=== PATIENT | female | born 1985 | race Caucasian/White ===

== ENCOUNTER → 2020-11-17 11:05 | Outpatient (CLI) | payer OTHER, MEDICAID, SELFPAY ==
[2020-11-17 12:19] LABS: Add Manual Diff / Slide Review NO; Basophils Absolute Auto 0 /uL (0-100); Basophils Percent Auto 0.6 % (0-2); Eosinophils Absolute Auto 100 /uL (0-450); Eosinophils Percent Auto 1.2 % (2-4); Hematocrit 37.7 % (36-46); Hemoglobin 12.3 g/dL (12.0-16.0); Lymphocytes Absolute Auto 1600 /uL (1100-4500); Lymphocytes Percent Auto 24.5 % (25-40); Mean Corpuscular HGB Conc 32.7 % (30-36); Mean Corpuscular Volume 85.7 fL (80-100); Monocytes Absolute Auto 600 /uL (0-900); Monocytes Percent Auto 8.5 % (3-14); Neutrophils Absolute Auto 4300 /uL (1500-7000); Neutrophils Percent Auto 65.2 % (50-75); Platelet Count 331 X10^3/uL (150-400); Red Cell Distribution Width 13.9 % (11.6-14.8); White Blood Cell Count 6.6 X10^3/uL (4.5-11.0)
[2020-11-17 12:28] LABS: Alanine Aminotransferase 13 IU/L (<35); Albumin 4.8 g/dL (3.5-5.0); Albumin Globulin Ratio 1.7 (1.0-2.8); Alkaline Phosphatase 52 U/L (38-126); Aspartate Aminotransferase 22 IU/L (14-36); BUN Creatinine Ratio 17.5 (6-22); Bilirubin Total 0.4 mg/dL (0.2-1.3); Blood Urea Nitrogen 10 mg/dL (7-17); Calcium 9.7 mg/dL (8.4-10.2); Carbon Dioxide 26 mmol/L (22-32); Chloride 106 mmol/L (98-107); Cholesterol 150 mg/dL (140-199); Estimated Glomerular Filt Rate > 60.0 mL/min (>60); Globulin 2.8 g/dL (1.7-4.1); Glucose 99 mg/dL (70-100); HDL Cholesterol 64 mg/dL (40-60); HEMOLYSIS < 15 (0-50); LDL Cholesterol Calculated 75 mg/dL (<100); Potassium 4.2 mmol/L (3.4-5.1); Sodium 139 mmol/L (137-145); Total Protein 7.6 g/dL (6.3-8.2); Triglycerides 55 mg/dL (35-150)
[2020-11-17 12:55] LABS: Free T4, Direct Thyroxine 0.83 ng/dL (0.78-2.19)
== END ==
PROVIDERS: PCP Registered Nurse; Referring Provider Registered Nurse; Visit Provider Registered Nurse
DX: R53.83 Other fatigue (principal); I10 Essential (primary) hypertension; Z86.39 Personal history of other endocrine, nutritional and metabolic disease; Z83.42 Family history of familial hypercholesterolemia
CPT/HCPCS: 36415; 80053; 80061; 84439; 84443; 85025

== ENCOUNTER → 2021-03-15 12:10 | Outpatient (CLI) | payer OTHER, MEDICAID, SELFPAY ==
[2021-03-15 17:40] LABS: Urine N gonorrhoeae NOT DETECTED
[2021-03-15 17:42] LABS: Urine Chlamydia NOT DETECTED
[2021-03-15 19:04] LABS: HIV 1 & 2 Ab/Ag 4th Gen Combo NEGATIVE (NEGATIVE); Hep C Virus Ab w/Reflex Quant NEGATIVE s/c (NEGATIVE)
[2021-03-16 08:36] LABS: Hepatitis B Surf Ab Qualitativ Non Reactive (.)
[2021-03-16 11:09] LABS: RPR Screen Non Reactive (Non Reactive)
== END ==
PROVIDERS: PCP Registered Nurse; Referring Provider Specialist; Visit Provider Specialist
DX: Z20.2 Contact with and (suspected) exposure to infections with a predominantly sexual mode of transmission (principal); Z11.3 Encounter for screening for infections with a predominantly sexual mode of transmission
CPT/HCPCS: 36415; 86592; 86706; 86803; 87389; 87491; 87591

== ENCOUNTER → 2021-05-03 13:08 | Outpatient (CLI) | payer OTHER, MEDICAID, SELFPAY ==
[2021-05-03 15:29] LABS: Urine N gonorrhoeae NOT DETECTED
[2021-05-03 15:50] LABS: Urine Chlamydia NOT DETECTED
[2021-05-04 04:36] LABS: HSV 2 IGG AB < 0.91 index (0.00-0.90); HSV1IGG > 62.20 index (0.00-0.90); RPR Screen Non Reactive (Non Reactive)
[2021-05-04 17:26] LABS: Hepatitis B Surface Antigen NEGATIVE s/c (NEGATIVE)
[2021-05-04 17:41] LABS: HIV 1 & 2 Ab/Ag 4th Gen Combo NEGATIVE (NEGATIVE); Hep C Virus Ab w/Reflex Quant NEGATIVE s/c (NEGATIVE)
[2021-05-05 22:19] LABS: HSV I/II IgM <0.91 Ratio (0.00-0.90)
== END ==
PROVIDERS: PCP Registered Nurse; Referring Provider Specialist; Visit Provider Specialist
DX: Z11.3 Encounter for screening for infections with a predominantly sexual mode of transmission (principal); Z20.2 Contact with and (suspected) exposure to infections with a predominantly sexual mode of transmission
CPT/HCPCS: 36415; 86592; 86694; 86695; 86696; 86803; 87340; 87389; 87491; 87591

== ENCOUNTER → 2021-09-21 14:09 | Outpatient (CLI) | payer OTHER, MEDICAID, SELFPAY ==
[2021-09-21 17:40] LABS: Hepatitis B Surface Antigen NEGATIVE s/c (NEGATIVE)
[2021-09-21 17:56] LABS: HIV 1 & 2 Ab/Ag 4th Gen Combo NEGATIVE (NEGATIVE); Hep C Virus Ab w/Reflex Quant NEGATIVE s/c (NEGATIVE)
[2021-09-21 18:54] LABS: Urine N gonorrhoeae NOT DETECTED
[2021-09-21 19:01] LABS: Urine Chlamydia NOT DETECTED
[2021-09-22 03:53] LABS: RPR Screen Non Reactive (Non Reactive)
[2021-09-22 08:10] LABS: HSV 2 IGG AB < 0.91 index (0.00-0.90)
[2021-09-22 18:42] LABS: HSV I/II IgM <0.91 Ratio (0.00-0.90)
== END ==
PROVIDERS: PCP Family Medicine; Referring Provider Family Medicine; Visit Provider Family Medicine
DX: B00.1 Herpesviral vesicular dermatitis; R53.83 Other fatigue; Z01.89 Encounter for other specified special examinations
CPT/HCPCS: 36415; 86592; 86694; 86695; 86696; 86803; 87340; 87389; 87491; 87591

== ENCOUNTER → 2021-10-06 08:32 | Outpatient (CLI) | payer OTHER, MEDICAID, SELFPAY ==
--- NOTE | 2021-10-06 08:33 | DI.RAD.S_ITS ---
PROCEDURE: XR HAND RT MIN 3V INDICATIONS: bilateral hand pain TECHNIQUE: 3 views of the right hand(s) acquired. COMPARISON: None. FINDINGS: Bones: No fractures or dislocations. Carpal bones are normally aligned. No suspicious bony lesions. Soft tissues: No suspicious soft tissue calcifications. IMPRESSION: No radiographic abnormalities. Dictated by: Tamara Green M.D. on 10/06/2021 at 10:38 Approved by: Tamara Green M.D. on 10/06/2021 at 10:38
--- NOTE | 2021-10-06 08:33 | DI.RAD.S_ITS ---
PROCEDURE: XR HAND LT MIN 3V INDICATIONS: bilateral hand pain TECHNIQUE: 3 views of the left hand(s) acquired. COMPARISON: None. FINDINGS: Bones: No fractures or dislocations. Carpal bones are normally aligned. No suspicious bony lesions. Soft tissues: No suspicious soft tissue calcifications. IMPRESSION: No radiographic abnormalities. Dictated by: Tamara Green M.D. on 10/06/2021 at 10:38 Approved by: Tamara Green M.D. on 10/06/2021 at 10:39
== END ==
PROVIDERS: PCP Family Medicine; Referring Provider Family Medicine; Visit Provider Family Medicine
DX: G56.03 Carpal tunnel syndrome, bilateral upper limbs (principal); M79.641 Pain in right hand; M79.642 Pain in left hand
CPT/HCPCS: 73130

== ENCOUNTER → 2021-10-19 09:22 | Outpatient (CLI) | payer OTHER, MEDICAID, SELFPAY ==
[2021-10-19 12:12] LABS: TSH w/ Reflex to FT4 2.42 uIU/mL (0.47-4.68)
== END ==
PROVIDERS: PCP Family Medicine; Referring Provider Family Medicine; Visit Provider Family Medicine
DX: Z86.39 Personal history of other endocrine, nutritional and metabolic disease (principal)
CPT/HCPCS: 36415; 84443

== ENCOUNTER 2021-10-26 10:23 | Day surgery (SDC) | payer OTHER, MEDICAID, SELFPAY ==
[2021-10-20 14:14] VITALS: BMI 23.6
--- NOTE | 2021-10-26 | PATH_ITS ---
[facility] Accession Number: [id number] . 01 Material submitted: . fallopian tube - BILATERAL FALLOPIAN TUBES . 01 Diagnosis: Bilateral Fallopian Tubes, Bilateral Salingectomies: Fallopian tube #1, complete cross-sections; negative for atypia or malignancy; adjacent benign 4 mm paratubal cyst. Fallopian tube #2, complete cross-sections; negative for atypia or malignancy. [facility] 10/30/2021 1602 Local . 01 Electronically signed: . Rosita Mercer MD, Pathologist NPI- [id number] . 01 Gross description: . Received in formalin in a specimen container labeled with the patient's name, medical record number, and bilateral fallopian tubes, are two unoriented fallopian tubes with attached fimbriae. The fallopian tube #1 measures 5.5 cm in length and 0.7 cm in maximum diameter. The attached fimbria measures 1.0 x 1.0 x 0.5 cm. The serosal surface is pink, smooth and glistening. There is a 0.4 cm in diameter paratubal cyst identified within the ampullary aspect of the fallopian tube. The cut surfaces are cylindrical and patent 0.2 cm in diameter unremarkable lumen. Fallopian tube #2 measures 5 cm in length and 0.7 cm in maximum diameter. The attached fimbria measures 1.3 x 0.7 x 0.7 cm. The serosal surface is pink, smooth, glistening and cut surface are patent, cylindrical, with 0.2 cm patient lumen. . The fundraising sale representative sections are submitted as follows: . A1: Fallopian tube #1 and fimbria, as well as paratubal cyst. A2: Fimbria and fallopian tube fundraising sale representative of fallopian tube #2. ([id number]) /MRV 10/30/2021 0940 Local . 01 Pathologist provided ICD-10: Z30.2, Z30.432 . 01 CPT . 724936 Specimen Comment: A courtesy copy of this report has been sent to [phone] Performed at: 01 [facility] [address] [place] [address], [place], [place] [id number] MD Rodrick Aaron MD Phone: [phone]
[2021-10-26 10:48] VITALS: BP 116/72; PULSE 77; RESP 20; TEMP 36.6; O2SAT 97; BMI 23.6
[2021-10-26 11:03] LABS: COVID19 -Nasal RAPID Negative (Negative)
[2021-10-26] MEDS: LACTATED RINGERS 1,000 ML 100 ML IV (11:04)
--- NOTE | 2021-10-26 13:35 | PM.GYNOP.1 ---
Procedure & Clinicians Procedure: Procedures Operation Date: 10/26/21 11:45 <No data on this case meets the specified criteria>
--- NOTE | 2021-10-26 13:35 | PM.HP.1 ---
History of Present Illness History of Present Illness Date Patient Seen: 10/26/21 Time Patient Seen: 13:35 Chief complaint: SDC Narrative: Patient is a 36-year-old 3 para 2 who desires permanent sterilization. Patient also has a ParaGard IUD in place that needs to be removed. Patient History Medical History (Updated 09/21/21 @ 14:39 by Kimmie Astorga PA-C) Anxiety with depression Carpal tunnel syndrome on both sides Fatigue Heavy menstrual period Herpes (~2019) Ovarian cyst Surgical History (Updated 03/14/21 @ 20:10 by Gayle Adams) Anesthesia History of appendectomy History of thyroid surgery Family & Social History Family History (Updated 03/14/21 @ 20:11 by Gayle Adams) Father Prostate cancer Brother Mental health problem Social History: household members significant other,family Tobacco & Substance use: Smoking Status Current every day smoker alcohol intake current alcohol intake frequency 0-2 drinks per day Substance Use Type marijuana Meds Home Medications and Allergies Home Medications Medication Instructions Recorded Confirmed Type Paraguard 1 unit intrauterine CONT 11/17/20 10/06/21 History hydrocortisone acetate 25 mg 25 mg AR BEDTIME hemorrhoids #1 ea 08/17/21 10/20/21 Rx rectal suppository (Anusol-HC) gabapentin 600 mg tablet 600 mg PO TID PRN nerve pain #90 10/06/21 10/26/21 Rx tabs dextroamphetamine-amphetamine 10 See Rx Instructions PO ONCE PRN 10/25/21 10/26/21 Rx mg tablet adhd #60 tabs sertraline 100 mg tablet See Rx Instructions .Route 10/25/21 10/26/21 Rx .COMPLEX #90 tabs Allergies Allergy/AdvReac Type Severity Reaction Status Date / Time No Known Drug Allergies Allergy Verified 10/06/21 08:11 Exam Vital Signs (past 8 hours): - 10/26/21 10:48 Temperature 97.9 F Pulse Rate 77 Respiratory Rate 20 Blood Pressure 116/72 Pulse Oximetry 97 Oxygen Delivery Method Room Air Oxygen Delivery Method Room Air Narrative Exam Narrative: HEENT: No thyromegaly, no anterior cervical or supraclavicular lymphadenopathy. Lungs:Clear to auscultation bilaterally, no wheezes. Cardiovascular: Regular rate and rhythm, no murmurs, rubs, or gallops. Abdomen: Well-healed scars. No hepatosplenomegaly. No masses palpable. External genitalia: Normal Vagina: Normal Cervix: Normal IUD strings visible Bimanual exam: [7 Week size anteverted uterus. Mobile.] Rectal: No masses. Objective Labs Labs: Laboratory Results - last 24 hr 10/26/21 10:39 SARS-CoV-2 (PCR) Negative Assessment & Plan Assessment & Plan narrative: Assessment: 36-year-old 3 para 2 who desires permanent sterilization ParaGard IUD in place Plan: Laparoscopic bilateral salpingectomy and removal of ParaGard IUD The risks, benefits, and alternatives to the procedure were explained to the patient. The risks including bleeding, infection, injury to the bowel, bladder, or ureters. She understands these risks and agrees to proceed. A full par Q was held and consent form was signed. COVID-19 COVID-19 status: Negative Result date/Date tested (Pos, Neg/Pending): 10/26/21 Time Spent With Patient Time with patient: less than 30 minutes Critical Care time: I spent a total of [] minutes of critical care time on this patient's care today; this time is exclusive of procedural time.
--- NOTE | 2021-10-26 13:38 | PM.PREOP ---
Pre-operative Note COVID-19 COVID-19 status: Negative Result date/Date tested (Pos, Neg/Pending): 10/26/21 Criteria for continued procedure: Non-surgical alternatives not available or appropriate per current SOC Interval Note History & Physical reviewed/Exam performed by Physician: Yes Changes to H&P: No H&P completed within 30 days and has changed as indicated here:: 10/26/21
[2021-10-26] MEDS: ACETAMINOPHEN IV 1,000 MG/100 ML VIAL 400 MG IV (14:20)
--- NOTE | 2021-10-26 14:21 | SUR.OPER ---
Lithotomy on padded OR bed, head on pillow, arms secured and tucked padded with gel. Legs secured in padded yellow fins stirrups. directed and approved by surgeon.
[2021-10-26] MEDS: BUPIVACAINE 0.5% W/ EPI (PF) 30 ML VIAL INJ (14:35)
[2021-10-26 15:03] VITALS: BP 105/63; PULSE 74; RESP 16; TEMP 36.6; O2SAT 97
[2021-10-26 15:08] VITALS: BP 114/69; PULSE 86; RESP 16; O2SAT 96
[2021-10-26] MEDS: OXYCODONE IR 5 MG TABLET PO (15:14)
[2021-10-26 15:17] VITALS: BP 116/77; PULSE 75; RESP 16; O2SAT 96
[2021-10-26 15:31] VITALS: BP 111/63; PULSE 75; RESP 19; TEMP 36.3; O2SAT 96
--- NOTE | 2021-10-26 15:55 | SUR.PHASEII ---
Pt ready to go, left in stable condition, pink dressings remained c/d/i and no drainage on gurjit pad.
--- NOTE | 2021-11-13 04:56 | PM.GYNOP.1 ---
Operative Date/Time/Diagnoses Date of procedure: 10/26/21 Time of procedure: 13:00 Pre-op diagnosis: Desires permanent sterilization ParaGard IUD in place Post-op diagnosis: same Procedure & Clinicians Procedure: Procedures Operation Date: 10/26/21 11:45 Actual Procedure Side Surgeon p Laparoscopic Bilateral Salpingectomy, removal of Paragard IUD Mabel Mathews MD Indications: Desires permanent sterilization ParaGard IUD in place Surgeon: Mabel Mathews Anesthesia Type: General and Local Operative Notes Findings: 8 week size anteverted uterus Normal tubes and ovaries Normal liver and gallbladder Appendix previously removed Surgical clips seen in the right lower quadrant Filmy adhesions in the right lower quadrant Closure Type: primary Specimen(s): left tube and right tube Estimated blood loss (mL): 5 Blood products transfused: none Procedure in detail: After informed consent was obtained, the patient was taken to the operating room where she was placed in the dorsal supine position. After adequate general endotracheal anesthesia was achieved, she was placed in the dorsal lithotomy position, and prepped and draped in the usual sterile fashion. A time-out was performed. A bivalve speculum was placed into the vagina and the anterior lip of the cervix was grasped with the single tooth tenaculum. The polyp forceps were used to reach into the uterus and grabbed the ParaGard IUD. The Zumi uterine manipulator was placed into the endometrial cavity. The single-tooth tenaculum was removed from the anterior lip of the cervix. The bivalve speculum was removed from the vagina. Attention was then turned to the abdomen where 6 cc of 0.5% Marcaine with epinephrine were injected in the umbilical fold. A 5 mm incision was made. The Veress needle was placed into the peritoneal cavity, and its placement confirmed by aspiration and drop test. The abdominal cavity was insufflated with 3.4 L of CO2. The Veress needle was removed, and a 5 mm trocar was placed without difficulty. Two other incisions were made 4 cm lateral to the umbilicus after 6 cc of 0.5% Marcaine with epinephrine were injected. Two 5 mm trocars were placed under direct visualization. The right tube was grasped with an atraumatic grasper. Using the power seal, the mesosalpinx was cauterized and cut all the way down to the cornua of the uterus. The tube was amputated at the cornua. This was repeated on the patient's left tube. The tubes were removed through the lateral trocars. Hemostasis was achieved. The instruments were removed from the abdomen. The trocars were removed. The CO2 was allowed to escape. The incisions were repaired with 4-0 Monocryl in a subcuticular fashion. Steri-Strips and Allevyn dressings were placed. The Zumi uterine manipulator was removed from the uterus. Sponge, lap, and instrument counts were correct x2. The patient tolerated the procedure well, and was taken to PACU in stable condition. Complications: none Post-operative Condition: stable Disposition: PACU Plan for aftercare: Home after recovery
== END 2021-10-26 15:50 | disposition home or self-care (01) ==
PROVIDERS: PCP Family Medicine; Referring Provider Obstetrics & Gynecology; Visit Provider Obstetrics & Gynecology
PROC: (CPT 58661; principal; 2021-10-26 11:45)
DX: Z30.2 Encounter for sterilization (principal); Z30.432 Encounter for removal of intrauterine contraceptive device; F17.210 Nicotine dependence, cigarettes, uncomplicated; N83.8 Other noninflammatory disorders of ovary, fallopian tube and broad ligament
CPT/HCPCS: 58661; 58301; 81025; 87635; C9803; J0131; J1100; J1885; J2250; J2405; J2704; J3010

== ENCOUNTER → 2021-10-29 14:55 | Outpatient (CLI) | payer OTHER, MEDICAID, SELFPAY ==
--- NOTE | 2021-10-29 | DI.MRI.S_ITS ---
PROCEDURE: MR CERVICAL SPINE WO CON INDICATIONS: Radiculopathy, cervical region TECHNIQUE: Noncontrast sagittal T1 spin echo and T2 fast spin echo, sagittal STIR, foraminal oblique sagittal T2 fast spin echo, and axial gradient echo or T2 fast spin echo through the cervical spine. COMPARISON: Thyroid ultrasound 10/28/2012 FINDINGS: Image quality: Excellent. Alignment and Curvature: There is no listhesis. Vertebral body heights maintained. Bone Marrow: Marrow demonstrates normal overall signal. Spinal Cord: Visualized spinal cord has normal size and signal. No cerebellar tonsillar herniation. Regional Soft Tissues: No paravertebral masses. Prevertebral soft tissues are normal in thickness. Multiple thyroid nodules again noted. C2-C3: No spinal canal or neural foraminal stenosis. C3-C4: No spinal canal or neural foraminal stenosis. C4-C5: No spinal canal or neural foraminal stenosis. C5-C6: No spinal canal or neural foraminal stenosis. C6-C7: No spinal canal or neural foraminal stenosis. C7-T1: No spinal canal or neural foraminal stenosis. IMPRESSION: No spinal canal stenosis, neural foraminal stenosis, or evidence of focal nerve root impingement. No findings to explain the reported radicular symptoms. Dictated by: Santi Lujan M.D. on 10/30/2021 at 8:26 Approved by: Santi Lujan M.D. on 10/30/2021 at 8:29
== END ==
PROVIDERS: PCP Family Medicine; Referring Provider Orthopaedic Surgery; Visit Provider Orthopaedic Surgery
DX: M54.12 Radiculopathy, cervical region (principal)
CPT/HCPCS: 72141

== ENCOUNTER → 2022-11-26 09:37 | Outpatient (CLI) | payer OTHER, MEDICAID, SELFPAY ==
--- NOTE | 2022-11-26 09:38 | DI.US.S_ITS ---
ULTRASOUND OF RIGHT BREAST: 11/26/2022 CLINICAL: RIGHT BREAST LUMP. Comparison is made to exam dated: 11/26/2022 mammogram - [facility]. Real-time ultrasound of the right breast was performed on the areas of interest. Greene scale images of the real-time examination were reviewed. There is a 0.8 cm oval simple cyst in the right breast at 9 o'clock middle depth. This oval simple cyst is anechoic. This correlates as an incidental finding. Color flow imaging demonstrates that there is no vascularity present. IMPRESSION: BENIGN There is no sonographic evidence of malignancy. The 0.8 cm oval simple cyst in the right breast is benign. There is no mammographic or sonographic abnormality seen in the right breast to correspond with the palpable abnormality which is likely consistent with dense, normal fibroglandular tissue, however, clinical followup is recommended. Return to annual mammogram screening schedule is recommended. This exam was interpreted at Station ID: [id number]. Electronically Signed By: Tamara upton/:11/26/2022 11:01:09 letter sent: Clinical Evaluation Ultrasound BI-RADS: 2 Benign
--- NOTE | 2022-11-26 09:38 | DI.MG.S_ITS ---
BILATERAL DIGITAL DIAGNOSTIC MAMMOGRAM 3D/2D: 11/26/2022 CLINICAL: Baseline exam. Right breast lump. No prior exams were available for comparison. Both breasts are extremely dense, which lowers the sensitivity of mammography (category d />75% glandular tissue). No significant masses, calcifications, or other findings are seen in either breast. IMPRESSION: INCOMPLETE: NEEDS ADDITIONAL IMAGING EVALUATION There is no mammographic abnormality seen in the right breast to correspond with the palpable abnormality, however, targeted ultrasound of the right breast is recommended and will be performed immediately following this exam. Based on the Tyrer Cuzick model (a risk assessment model) the patient's lifetime risk is 15.0% and her 10 year risk is 1.2%. According to the ACR, ACS, and NCCN guidelines, an annual breast MRI exam along with mammogram is recommended if the patient's lifetime risk is 20% or greater. This exam was interpreted at Station ID: [id number]. NOTE: For mammograms, a report in lay terms will be sent to the patient. Approximately 15% of breast malignancies will not be visualized mammographically. In the management of a palpable breast mass, a negative mammogram must not discourage biopsy of a clinically suspicious lesion. Electronically Signed By: Tamara Green M.D. lk/:11/26/2022 10:54:33 ACR BI-RADS Category 0: Incomplete [id number]
== END ==
PROVIDERS: PCP Family Medicine; Referring Provider Family Medicine; Visit Provider Family Medicine
DX: N60.01 Solitary cyst of right breast (principal); R92.2 Inconclusive mammogram
CPT/HCPCS: 76642; 77066; G0279

== ENCOUNTER → 2023-11-07 13:36 | Outpatient (CLI) | payer OTHER, MEDICAID, SELFPAY ==
[2023-11-07 14:30] LABS: Add Manual Diff / Slide Review NO; Basophils Absolute Auto 0 /uL (0-100); Basophils Percent Auto 0.6 % (0-2); Eosinophils Absolute Auto 100 /uL (0-450); Hemoglobin 12.4 g/dL (12.0-16.0); Lymphocytes Absolute Auto 1300 /uL (1100-4500); Lymphocytes Percent Auto 18.4 % (25-40); Mean Corpuscular HGB Conc 34.3 % (30-36); Mean Corpuscular Hemoglobin 29.9 PG (26-34); Mean Corpuscular Volume 87.2 fL (80-100); Monocytes Absolute Auto 500 /uL (0-900); Monocytes Percent Auto 6.5 % (3-14); Neutrophils Absolute Auto 5300 /uL (1500-7000); Neutrophils Percent Auto 73.5 % (50-75); Platelet Count 340 X10^3/uL (150-400); Red Blood Cell Count 4.13 X10^6/uL (4.0-5.2); White Blood Cell Count 7.3 X10^3/uL (4.5-11.0)
[2023-11-07 14:47] LABS: Alanine Aminotransferase 7 IU/L (<35); Albumin 5.1 g/dL (3.5-5.0); Alkaline Phosphatase 68 U/L (38-126); Aspartate Aminotransferase 16 IU/L (14-36); Bilirubin Total 0.7 mg/dL (0.2-1.3); Blood Urea Nitrogen 9 mg/dL (7-17); Calcium 9.6 mg/dL (8.4-10.2); Carbon Dioxide 26 mmol/L (22-32); Chloride 104 mmol/L (98-107); Cholesterol 164 mg/dL (140-199); Estimated Glomerular Filt Rate > 60 mL/min (>60); Globulin 2.5 g/dL (1.7-4.1); Glucose 92 mg/dL (70-100); HDL Cholesterol 56 mg/dL (40-60); HEMOLYSIS < 15 (0-50); LDL Cholesterol Calculated 90 mg/dL (<100); Potassium 4.6 mmol/L (3.4-5.1); Sodium 140 mmol/L (137-145); Total Protein 7.6 g/dL (6.3-8.2); Triglycerides 89 mg/dL (35-150)
[2023-11-07 15:38] LABS: Vitamin B12 489 pg/mL (239-931)
== END ==
LOC: LAB 13:37
PROVIDERS: PCP Family Medicine; Referring Provider Family Medicine; Visit Provider Family Medicine
DX: Z00.00 Encounter for general adult medical examination without abnormal findings (principal); F41.8 Other specified anxiety disorders; L65.9 Nonscarring hair loss, unspecified; L68.0 Hirsutism
CPT/HCPCS: 36415; 80053; 80061; 82607; 84402; 84403; 84443; 85025

== ENCOUNTER → 2023-12-20 07:39 | Outpatient (CLI) | payer OTHER, MEDICAID, SELFPAY ==
[2023-12-20 09:09] LABS: Free T4, Direct Thyroxine 0.76 ng/dL (0.78-2.19)
[2023-12-20 09:23] LABS: Thyroid Stimulating Hormone 2.54 uIU/mL (0.47-4.68)
[2023-12-21 09:11] LABS: Adrenocorticotropic Hormone 55.5 pg/mL (7.2-63.3)
== END ==
LOC: LAB 07:39
PROVIDERS: PCP Family Medicine; Referring Provider Obstetrics & Gynecology; Visit Provider Obstetrics & Gynecology
DX: Z01.419 Encounter for gynecological examination (general) (routine) without abnormal findings (principal); R79.89 Other specified abnormal findings of blood chemistry
CPT/HCPCS: 36415; 82024; 82627; 83498; 84403; 84439; 84443

== ENCOUNTER → 2024-05-11 15:48 | Outpatient (CLI) | payer OTHER, SELFPAY ==
[2024-05-11 16:30] LABS: C-Reactive Protein Quant < 0.5 mg/dL (<1.0); Erythrocyte Sedimentation Rate 8 MM/HR (0-20)
[2024-05-14 18:36] LABS: ANA Screen, IFA Negative (.)
== END ==
PROVIDERS: PCP Family Medicine; Referring Provider Family Medicine; Visit Provider Family Medicine
DX: I73.00 Raynaud's syndrome without gangrene (principal)
CPT/HCPCS: 36415; 85651; 86038; 86140

== ENCOUNTER → 2024-06-26 08:52 | Outpatient (CLI) | payer OTHER, SELFPAY ==
--- NOTE | 2024-06-26 08:52 | DI.US.S_ITS ---
PROCEDURE: US THYROID INDICATIONS: HISTORY OF THYROIDECTOMY LEFT. NEW RIGHT NECK SWELLING. TECHNIQUE: Real-time scanning was performed of the thyroid gland, with image documentation. COMPARISON: None. FINDINGS: Thyroid: Right lobe measures 5.8 x 2.0 x 2.3 cm. Left lobe has been removed.. Isthmus is 0.3 cm thick. Echotexture is homogeneous. Nodule number: 1 Location: Right superior Size: 1.6 x 1.6 x 0.6 cm. Composition: Solid Echogenicity: Hypoechoic Shape: wider than tall. Margins: Smooth Echogenic foci: Comet tail Total points: 7 ACR TI-RADS category: 5 Nodule number: 2 Location: Right medial Size: 1.1 x 1.2 x 0.6 cm. Composition: Solid Echogenicity: Hypoechoic Shape: wider than tall. Margins: Smooth Echogenic foci: None Total points: 4 ACR TI-RADS category: 4 Nodule number: 3 Location: Right inferior Size: 2.2 x 1.7 x 1.9 cm. Composition: Mix Echogenicity: Hypoechoic Shape: wider than tall. Margins: Smooth Echogenic foci: None Total points: 3 ACR TI-RADS category: 3 IMPRESSION: Left thyroidectomy. Lesion 3 is considered category 3. Secondary to size, follow-up imaging is recommended as below. Lesions 1 and 2 are considered category 4. Lesion 1 FNA is recommended. Lesion 2 is recommended imaging follow-up. ACR TI-RADS definitions and recommendations: TI-RADS 1 (benign): 0 points. FNA not needed. TI-RADS 2 (not suspicious): 2 points. FNA not needed. TI-RADS 3: 3 points. * FNA if 2.5 cm or larger, follow up if 1.5 cm or larger (at 1, 3, and 5 years). TI-RADS 4: 4-6 points. * FNA if 1.5 cm or larger, follow up if 1 cm or larger (at 1, 2, 3, and 5 years). TI-RADS 5: 7 points or more. * FNA if 1 cm or larger, follow up if 0.5 cm or larger (every year for 5 years). Dictated by: Meryl Mukherjee M.D. on 06/26/2024 at 14:39 Approved by: Meryl Mukherjee M.D. on 06/26/2024 at 14:50
--- NOTE | 2024-06-26 08:52 | DI.US.S_ITS ---
PROCEDURE: US ABDOMEN LIMITED INDICATIONS: SWELLING - EVALUATE INFRACLAVICULAR LYMPHNODES TECHNIQUE: Real-time focused scanning was performed of the infraclavicular region, with image documentation. COMPARISON: None. FINDINGS/IMPRESSION: Targeted ultrasound of the infraclavicular region demonstrates no sonographic abnormality. Dictated by: Saulo Parada M.D. on 06/26/2024 at 10:41 Approved by: Saulo Parada M.D. on 06/26/2024 at 10:41
--- NOTE | 2024-06-26 08:52 | DI.US.S_ITS ---
PROCEDURE: US SOFT TISSUE HEAD AND NECK INDICATIONS: CERVICAL/SUBMANDICULAR SWELLING - EVALUATE LYMPHNODES TECHNIQUE: Real-time scanning was performed of the neck region of interest, with image documentation. COMPARISON: None. FINDINGS/IMPRESSION: No abnormal cervical chain nodes. Visualized submandibular and parotid glands are unremarkable. Dictated by: Saulo Parada M.D. on 06/26/2024 at 10:28 Approved by: Saulo Parada M.D. on 06/26/2024 at 10:40
[2024-06-26 10:23] LABS: Add Manual Diff / Slide Review NO; Basophils Absolute Auto 0 /uL (0-100); Basophils Percent Auto 0.5 % (0-2); Eosinophils Absolute Auto 100 /uL (0-450); Eosinophils Percent Auto 2.3 % (2-4); Hematocrit 35.7 % (36-46); Hemoglobin 12.1 g/dL (12.0-16.0); Lymphocytes Absolute Auto 1500 /uL (1100-4500); Lymphocytes Percent Auto 26.7 % (25-40); Mean Corpuscular HGB Conc 33.8 % (30-36); Mean Corpuscular Hemoglobin 29.4 PG (26-34); Mean Corpuscular Volume 86.8 fL (80-100); Monocytes Absolute Auto 400 /uL (0-900); Monocytes Percent Auto 7.5 % (3-14); Neutrophils Absolute Auto 3500 /uL (1500-7000); Platelet Count 320 X10^3/uL (150-400); Red Blood Cell Count 4.12 X10^6/uL (4.0-5.2); Red Cell Distribution Width 13.4 % (11.6-14.8); White Blood Cell Count 5.5 X10^3/uL (4.5-11.0)
[2024-06-26 10:38] LABS: C-Reactive Protein Quant < 0.5 mg/dL (<1.0)
[2024-06-26 10:52] LABS: Free T4, Direct Thyroxine 0.74 ng/dL (0.78-2.19)
[2024-06-26 11:06] LABS: Thyroid Stimulating Hormone 1.12 uIU/mL (0.47-4.68)
[2024-06-27 07:08] LABS: Triiodothyronine T3 Total 121 ng/dL (71-180)
== END ==
PROVIDERS: PCP Family Medicine; Referring Provider Registered Nurse Diabetes Educator; Visit Provider Registered Nurse Diabetes Educator
DX: E04.2 Nontoxic multinodular goiter (principal); E89.0 Postprocedural hypothyroidism; R22.1 Localized swelling, mass and lump, neck; R59.0 Localized enlarged lymph nodes; R07.0 Pain in throat
CPT/HCPCS: 36415; 76536; 76705; 84439; 84443; 84480; 85025; 86140

== ENCOUNTER → 2024-07-17 14:55 | Outpatient (CLI) | payer OTHER, SELFPAY ==
--- NOTE | 2024-07-17 14:57 | DI.US.S_ITS ---
PROCEDURE: US FINE NEEDLE ASPIRATION INDICATIONS: Abnormal thyroid ultrasound TECHNIQUE: The indications, alternatives, benefits, risks, and complications of the procedure were explained to the patient. Written informed consent was obtained and placed in the chart. The thyroid region was examined sonographically and a site was chosen for ultrasound guided percutaneous sampling. The skin was prepared and draped in the usual fashion, and anesthetized with 1% lidocaine infiltrated from the skin down to the thyroid gland. Multiple passes were then performed, with contents emptied into an appropriate pathology specimen container. A bandage was applied to the area of access at completion of the study. COMPARISON: [facility], US, US THYROID, 06/26/2024, 9:24. FINDINGS: Location(s) of lesion(s) sampled: Right superior thyroid nodule measuring 1.6 cm. [place]: 22 gauge hypodermic needles. Number of passes: 6 Medications: 1% lidocaine for local anaesthesia. Complications: None. IMPRESSION: Successful ultrasound-guided thyroid nodule fine needle aspiration, with cytology results pending. Please see chart below for management recommendations based on cytology results. [facility] System ReportingRecommendationsNon-diagnostic* Repeat US-guided FNA, with on-site cytology evaluation if possible. * Repeated non-diagnostic nodules without high suspicion US features: close observation vs surgical consult. * Consider surgery if nodule has high suspicion US features, grows >20% in 2 dimensions on followup, or patient has clinical risk factors for malignancy. Benign* If nodule has high suspicion US features: repeat US and FNA within 12 months. * If nodule has low to intermediate suspicion US features: repeat US at 12-24 months. If nodule grows (20% increase in at least 2 dimensions, with minimal increase of 2 mm or >50% change in volume), or development of new suspicious US features, then repeat FNA or continue followup. * If nodule has very low suspicion US features: followup US at >24 months. Atypia of undetermined significance, follicular lesion of undetermined significanceRepeat FNA, molecular testing, followup US, or surgical consult.Follicular neoplasm, suspicious for follicular neoplasmSurgical consult; also consider molecular testing. Suspicious for malignancySurgical consult.MalignantSurgical consult. Dictated by: Nemesio Sanderson M.D. on 07/17/2024 at 17:33 Approved by: Nemesio Sanderson M.D. on 07/17/2024 at 17:34
--- NOTE | 2024-07-17 15:51 | PATH_ITS ---
Note [facility] Accession Number: [id number] TESTS RESULT FLAG UNITS REF RANGE LAB Clinician Provided Cytology Information No. of containers..01 Other (Miscellaneous) No. of containers..02 Previously Prepared Cytology Slide Source: RIGHT THYROID DIAGNOSIS: RIGHT THYROID BENIGN. BETHESDA CATEGORY II. SPECIMEN CONSISTS OF BENIGN FOLLICULAR CELLS, COLLOID, AND BLOOD. 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 COMMENT: Hemorrhage partially obscures cell groups. If this is worrisome by clinical and imaging studies, close follow up is recommended. This case was also reviewed by Dr. Zachary Brennan (Julie), who agrees with the interpretation. Pathologist ICD10: 01 E04.1 Signed out by: Rosita Mercer MD, Pathologist NPI- [id number] Performed by: German Cao, Women Designer ([facility]) Gross description: 30 CC, RED, CLOUDY RECEIVED IN CYTOLYT CONTAINER. RECEIVED 6 ALCOHOL FIXED SLIDES IN 2 GREEN CAP COFFINS. RECEIVED 6 FIXED STAINED SLIDES IN 2 SLIDE HOLDERS. RECEIVED 1 RNA VIAL, : 09/15/25 REMA /ALINE 07/20/2024 1523 [facility] FLAG LEGEND: L-Low Normal,H-High Normal,LL-Alert Low,HH-Alert High <-Panic Low,>-Panic High,A-Abnormal,AA-Critical Abnormal Performed at: 01 [facility] [address], [place] [address] Rodrick Aaron MD, Performed at: 01 [facility] [address], [place], [place] [id number] MD Rodrick Aaron MD Phone: [phone]
== END ==
PROVIDERS: PCP Family Medicine; Referring Provider Family Medicine; Visit Provider Family Medicine
DX: E04.2 Nontoxic multinodular goiter
CPT/HCPCS: 10005